=== PATIENT | female | born 1990 | race Caucasian/White ===

== ENCOUNTER 2023-04-04 22:38 | Inpatient (IN) | payer OTHER, SELFPAY ==
[2023-04-04 22:39] VITALS: BP 160/105; PULSE 111; RESP 18; TEMP 36.7; O2SAT 100; BMI 23.3
[2023-04-04 23:13] LABS: Basophils # 0.1 10^3/uL (0.0-0.1); Basophils % 0.5 %; Eosinophils % 0.2 %; Hematocrit 39.3 % (36-47); Lymphocytes # 2.4 10^3/uL (0.8-4.8); Lymphocytes % 23.8 %; Mean Corpuscular HGB Conc 32.8 g/dL (30-55); Mean Corpuscular Hemoglobin 31.3 pg (27-33); Mean Corpuscular Volume 95.4 fl (85-98); Mean Platelet Volume 8.5 fL (7.4-10.4); Monocytes # 0.7 10^3/uL (0.2-0.9); Monocytes % 6.9 %; Neutrophils # 6.95 10^3/uL (1.8-7.7); Neutrophils % 68.4 %; Nucleated Red Blood Cells % 0 %; Platelet Count 355 10^3/cmm (157-399); Red Blood Count 4.12 10^6/uL (3.85-5.65); Red Cell Distribution Width 11.8 % (12.1-15.1); White Blood Count 10.16 10^3/uL (3.29-11.43)
[2023-04-04 23:30] LABS: INR 0.96 (0.8-1.2)
[2023-04-04] MEDS: LORazepam 2 mg/mL INJ 10 mL MDV 1 MG IM ×2 (23:32→23:36)
--- NOTE | 2023-04-04 23:39 | W.ED.PSYCHS ---
HPI - Psych General: Chief Complaint: Psychiatric Symptoms Stated Complaint: AMS Time Seen by Provider: 04/04/23 22:39 Source: patient and EMS Limitations: no limitations History of Present Illness: Patient was brought up here by EMS after found wandering on the road. Patient states she recently got out of skilled nursing she supposed to be on meds I do not know what meds she states she has not been taking them she appears acutely psychotic she is very tangential thoughts keeps talking about a person named Izaiah she denies SI or HI she states she has drank some alcohol night and smoked marijuana Review of Systems Const: Denies: fever(s), chills, body aches or change in appetite ENMT: Denies: throat pain or dental pain Card: Denies: chest pain Resp: Denies: dyspnea GI: Denies: abdominal pain, nausea, vomiting or diarrhea Musc: Denies: neck pain or back pain Skin/Breast: Denies: rash Neuro: Denies: headache(s) Psych: Reports: paranoia [facility] PFSH: Social History Current gender identity: Female Female Reproductive History: Date of last menstrual period: 02/25/23 Physical Exam Const: COMMON NORMALS: patient oriented x3 and healthy appearing HENMT: COMMON NORMALS: normocephalic and atraumatic HEAD & SCALP: normocephalic and atraumatic Eye: COMMON NORMALS: Equal, round and reactive pupils present and EOMs intact bilaterally PUPIL: Yes Equal, round and reactive pupils present Neck/C-Spine: COMMON NORMALS: full ROM and supple Chest: COMMONS NORMALS: normal inspection of the chest Resp: COMMON NORMALS: normal respiratory effort Cardio: COMMON NORMALS: regular rate, regular rhythm and No murmurs present (Cardio) RATE: regular rate RHYTHM: regular rhythm Extremity: COMMON NORMALS: normal to inspection and full ROM Neuro: COMMON NORMALS: patient oriented x3, moves all extremities and no focal motor deficits Psych: COMMON NORMALS: Normal thought process present and cooperative SPEECH: Yes rapid MOOD & AFFECT: Yes euphoric THOUGHT PROCESS: Normal thought process present THOUGHT CONTENT: Yes Derealization present Skin: COMMON NORMALS: no rashes or lesions noted and no wounds GENERAL SKIN EXAM: no rashes or lesions noted Course Vital Signs: Vital signs: Vital Signs Temperature 98.1 F 04/04/23 22:39 Pulse Rate 89 04/05/23 00:11 Respiratory Rate 18 04/05/23 00:11 Blood Pressure 138/94 04/05/23 00:09 Pulse Oximetry 100 04/05/23 00:11 Oxygen Delivery Me thod Room Air 04/04/23 22:39 MDM - Psych Medical Decision Making Patient presents here with acute psychosis patient is medically clear was placed under 96-hour hold I spoke to psychiatrist and will admit at this time. Medical Records I reviewed the patient's medical records. Lab Data I reviewed the patient's lab results. 04/04/23 23:07 04/04/23 23:07 Laboratory Results WBC 10.16 10^3/uL (3.29-11.43) 04/04/23 23:07 RBC 4.12 10^6/uL (3.85-5.65) 04/04/23 23:07 Hgb 12.90 g/dL (11.27-16.99) 04/04/23 23:07 Hct 39.3 % (36-47) 04/04/23 23:07 MCV 95.4 fl (85-98) 04/04/23 23:07 MCH 31.3 pg (27-33) 04/04/23 23:07 MCHC 32.8 g/dL (30-55) 04/04/23 23:07 RDW 11.8 % (12.1-15.1) L 04/04/23 23:07 Plt Count 355 10^3/cmm (157-399) 04/04/23 23:07 MPV 8.5 fL (7.4-10.4) 04/04/23 23:07 Neut % (Auto) 68.4 % 04/04/23 23:07 Lymph % (Auto) 23.8 % 04/04/23 23:07 [place] % (Auto) 6.9 % 04/04/23 23:07 Eos % (Auto) 0.2 % 04/04/23 23:07 Baso % (Auto) 0.5 % 04/04/23 23:07 Neut # (Auto) 6.95 10^3/uL (1.8-7.7) 04/04/23 23:07 Lymph # (Auto) 2.4 10^3/uL (0.8-4.8) 04/04/23 23:07 [place] # (Auto) 0.7 10^3/uL (0.2-0.9) 04/04/23 23:07 Eos # (Auto) 0.0 10^3/uL (0.0-0.8) 04/04/23 23:07 Baso # (Auto) 0.1 10^3/uL (0.0-0.1) 04/04/23 23:07 Nucleated RBC % (auto) 0 % 04/04/23 23:07 Nucleated RBCs # 0.0 /100WBC 04/04/23 23:07 PT 13.00 SECONDS (12.1-14.9) 04/04/23 23:07 INR 0.96 (0.8-1.2) 04/04/23 23:07 Sodium 139 mmol/L (136-145) 04/04/23 23:07 Potassium 3.4 mmol/L (3.5-5.1) L 04/04/23 23:07 Chloride 104 mmol/L (98-107) 04/04/23 23:07 Carbon Dioxide 27 mmol/L (22-29) 04/04/23 23:07 Anion Gap 11.4 (5-19) 04/04/23 23:07 BUN 13 mg/dL (6-20) 04/04/23 23:07 Creatinine 0.8 mg/dL (0.5-0.9) 04/04/23 23:07 GFR Calculation 83.1 mL/min (90-130) L 04/04/23 23:07 Glucose 85 mg/dL (65-115) 04/04/23 23:07 Calculated Osmolality 287 mOsm/kg (285-295) 04/04/23 23:07 Calcium 8.9 mg/dL (8.5-10.5) 04/04/23 23:07 Total Bilirubin 0.7 mg/dL (0.15-1.2) 04/04/23 23:07 AST 20 U/L (0-32) 04/04/23 23:07 ALT 7 U/L (0-33) 04/04/23 23:07 Alkaline Phosphatase 87 U/L (35-105) 04/04/23 23:07 Total Protein 7.2 g/dL (6.6-8.7) 04/04/23 23:07 Albumin 4.7 g/dL (3.5-5.2) 04/04/23 23:07 Globulin 2.5 g/dL (1.3-4.6) 04/04/23 23:07 TSH 2.28 uIU/mL (0.27-4.20) 04/04/23 23:07 Salicylates < 0.3 mg/dL (3-10) L 04/04/23 23:07 Acetaminophen < 5.0 ug/mL (10-30) L 04/04/23 23:07 Ethyl Alcohol < 10 mg/dL (0-10) 04/04/23 23:07 No radiology studies performed this visit Discharge Plan Discharge Patient Disposition: Admitted As Inpatient Admit Provider: Low Corado Clinical Impression: Acute psychosis Condition: Stable Coding Level of Care Code ED Mammalogist for Codi Eddy
--- NOTE | 2023-04-04 23:42 | PC.NURSE ---
Patient dressed out and placed in paper psych scrubs. Patient placed in cleared room with belongings removed, PSA present at bedside.
[2023-04-04 23:45] LABS: Alanine Aminotransferase 7 U/L (0-33); Albumin Level 4.7 g/dL (3.5-5.2); Alkaline Phosphatase 87 U/L (35-105); Anion Gap 11.4 (5-19); Aspartate Amino Transferase 20 U/L (0-32); Blood Urea Nitrogen 13 mg/dL (6-20); Calcium 8.9 mg/dL (8.5-10.5); Carbon Dioxide 27 mmol/L (22-29); Chloride 104 mmol/L (98-107); Creatinine Clr Calc Pharmacy 88.2772; Globulin 2.5 g/dL (1.3-4.6); Glomerular Filtration Rate 83.1 mL/min (90-130); Glucose 85 mg/dL (65-115); Osmolality Calculated 287 mOsm/kg (285-295); Potassium 3.4 mmol/L (3.5-5.1); Sodium 139 mmol/L (136-145); Thyroid Stimulating Hormone 2.28 uIU/mL (0.27-4.20); Total Bilirubin 0.7 mg/dL (0.15-1.2); Total Protein 7.2 g/dL (6.6-8.7)
--- NOTE | 2023-04-04 23:45 | PC.NURSE ---
Nurse branch sales manager SHOBHA Barton wasted ketamine with this nurse at the [facility] after med orders changed.
[2023-04-04 23:46] LABS: Acetaminophen < 5.0 ug/mL (10-30); Alcohol Level < 10 mg/dL (0-10); Salicylate < 0.3 mg/dL (3-10)
[2023-04-05 00:09] VITALS: BP 138/94
[2023-04-05 00:11] VITALS: PULSE 89; RESP 18; O2SAT 100
[2023-04-05 00:19] VITALS: BP 132/88; PULSE 104; RESP 20; O2SAT 97
[2023-04-05] MEDS: diphenhydrAMINE 50 mg Capsule PO (01:17)
[2023-04-05 01:20] LABS: HCG Qualitative Urine. Negative (Negative)
[2023-04-05 01:30] LABS: Bilirubin Urine Neg (Negative); Blood Urine 3+ (Negative); Glucose Urine UA Norm (Normal); Ketones Urine Negative (Negative); Leukocyte Esterase Urine Trace (Negative); Nitrate Urine Negative (Negative); Protein Urine Neg (Negative); Specific Gravity, Urine 1.015 (1.005-1.030); Urine Appearance SL Hazy (CLEAR); Urine Color Light yellow (Yellow); Urobilinogen Urine Neg (Negative); pH Urine 8 (5-7)
[2023-04-05 01:31] LABS: Add Urine Culture? No; Add Urine Microscopic? YES; Amorphous Sediment Urine 2+ /hpf; Bacteria Urine 2+ /hpf; RBC Urine 0-4 /hpf (0-2); Sulfosalicylic Acid Urine Negative (Negative); WBC Urine 0-4 /hpf (0-5)
[2023-04-05 01:32] LABS: Amphetamines Screen Urine Negative (Negative); Barbiturates Screen Urine Negative (Negative); Benzodiazepines Screen Urine Negative (Negative); Cocaine Screen Urine Negative (Negative); Opiate Screen Urine Negative (Negative); PCP Screen Urine Negative (Negative); THC Screen Urine Negative (Negative)
--- NOTE | 2023-04-05 03:19 | PC.NURSE ---
Patient Behavior At appx [phone] patient was pushing on the door and making threats to staff that we better let her out or she will tear this place up. Security and warehouse man present and verbal deescalation was successful.
[2023-04-05 06:00] VITALS: RESP 18
--- NOTE | 2023-04-05 06:40 | PC.NURSE ---
Due to patients manic behavior, only RR were documented. Per CN
[2023-04-05] MEDS: nicotine 2 mg Gum BUCCAL ×4 (11:30→17:48)
--- NOTE | 2023-04-05 13:45 | W.PM.NPUH&PS ---
Providers/Chief Complaint Admitting Physician: Low Corado MD Chief Complaint: AMS HPI NPU History of Present Illness Jason Tanner is a 32 year old female who presented to the emergency department after she was found by emergency medical services to be wandering on the road. The patient was unable to provide any history regarding how she had come to be there. The patient's urine toxicology screen was negative for alcohol and all illicit drugs in the standard panel. She had admitted to the use of marijuana and alcohol in the emergency department despite not having any evidence of alcohol or marijuana in her system. The patient was admitted to the neuropsychiatric unit for further evaluation and treatment. The patient reports that she has been fine here. She states that she has been residing with her mother and [facility]. She reports that she has 2 children ages 13 and 11 that live with her father. When the patient was asked as to where she was at this time she stated that she was in [facility]. She was an extremely poor historian and was unable to provide any significant details regarding her past history. She had acknowledged that something had happened like this before where she had been confused and was unable to remember who she was or where she was in the past. Inpatient psychiatric history: She had reported 1 previous inpatient hospitalization psychiatrically in [place]. Outpatient psychiatric history: Apparently 1 previous evaluation in 2019 at the [facility]. Allergies: amoxicillin Medical history: None reported Surgical history: 2 C-sections Current medications: None Drug and alcohol history:none reported although reports of previous DUI in [place] 2023 Legal Hx: hx of [facility] for DUI in 2022 Family psychiatric hx: none reported Social Hx: Per previous records, she lives in [facility] with her mother. Her 2 children are ages 13 and 11 and live with the father. She had had limited contact with her children but denies having her rights terminated. She reported a chaotic childhood as she had lived between several family members. She had denied any history of sexual physical or emotional abuse during her childhood. She had allegedly graduated from high school and had previously worked jobs although she was unable to describe any current work at this time. Meds NPU Home Medications Medication Instructions Recorded Confirmed Last Taken Type fluoxetine 20 mg capsule (Prozac) 20 mg PO DAILY 01/21/20 01/21/20 Unknown History hydroxyzine pamoate 25 mg capsule 25 mg PO BID PRN 01/21/20 01/21/20 Unknown History (Vistaril) Allergies Allergy/AdvReac Type Severity Reaction Status Date / Time No Known Allergies Allergy Verified 04/04/23 22:51 PFSH NPU PFSH: Social History Current gender identity: Female Mental Status Exam MSE Comments: Patient appeared very confused. She was alert and not oriented to place or time today. Her gait appeared within normal limits. She is a thin white female who appeared her stated age. She did at times appear to be hyperkinetic. Her speech was productive with increased rate and normal volume. Her mood was described as okay. Her affect was bizarre. Her thought process was nonlinear and disorganized with tangentiality appreciated. Her thought content showed no evidence of homicidal or suicidal ideation. She was able to follow basic one-step commands only. She was unable to complete simple arithmetic. Her registration of 3 out of 3 words was impaired. She remembered 0 words out of 3 words after 5 minutes. Her attention span appeared impaired. She did appear at times to be responding to internal stimuli. Her insight is impaired. Her judgment is poor. Her impulse control appeared limited. Vitals/I&O/Wt Last Vital Signs Temp 98.1 F 04/04/23 22:39 Pulse 104 H 04/05/23 00:19 Resp 18 04/05/23 06:00 BP 132/88 04/05/23 00:19 Pulse Ox 97 04/05/23 00:19 O2 Del Method Room Air 04/05/23 00:19 Weight last 48 hrs Weight 59.874 kg Data NPU 04/04/23 23:07 04/04/23 23:07 A&P Assessment and plan (1) Acute psychosis: (2) Dissociative episodes: (3) Dissociative fugue: Plan 32-year-old female who appears psychotic this time significant confusion admitted after being found on the road with a reported history of dissociation. 1. ?Encourage individual, group and milieu therapy. 2. Recommend sober living treatment at the highest level of care to which the patient is willing to commit. 3. Continue q-15 minute checks for safety 4. Will attempt to gather collateral information from family. 5. Consider antipsychotic, continue involuntary stay at this time. Involuntary Hold Information 96 Hour Hold: 96 Hour Involuntary Admission: Yes 96 Hour Hold Ending Date: 04/10/23 96 Hour Hold Ending Time: 23:19 Attestations NPU Medical Necessity Statement*: Inpatient hospitalization is medically necessary and deemed to be the clinically appropriate intervention at this time.? Medications will be initiated and adjusted as clinically indicated.? The patient will be hospitalized for at least 2 midnights.? The patient?s likely length of stay is 5-7 days.? 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
[2023-04-05 14:00] VITALS: BP 122/82; PULSE 88; RESP 20; TEMP 36.6; O2SAT 98
--- NOTE | 2023-04-05 15:41 | PC.NURSE ---
Patient yelling on the phone to her brother. Patient yelling that she keeps getting into predicaments for nothing. Patient states that obviously someone is gang stocking her, keeping track of her, on her phone.
[2023-04-05] MEDS: OLANZapine 5 mg ODT PO (16:49)
[2023-04-05 21:22] VITALS: RESP 16
[2023-04-06 06:00] VITALS: RESP 15
--- NOTE | 2023-04-06 06:37 | PC.NURSE ---
Due to patients manic behavior per CN only RR documented and vitals were not obtained.
[2023-04-06] MEDS: nicotine 2 mg Gum BUCCAL (09:46)
[2023-04-06] MEDS: OLANZapine 5 mg ODT PO (12:11)
[2023-04-06 14:00] VITALS: BP 106/70; PULSE 66; RESP 16; TEMP 36.6; O2SAT 99
--- NOTE | 2023-04-06 16:18 | P.NPUPN_ITS ---
Subjective NPU 2 Subjective: Patient presented today reporting that she is doing okay. She seemed to feel like she was already taking an antipsychotic so she was not wanting to start a new 1. We agreed she could take the as needed medication and that we would revisit this tomorrow and look at a long-term scheduled dose medication to assist with her confusion. She denied any other issues at this time. Mental Status Exam 2 MSE Comments: This is a well-nourished well-developed white female in hospital scrubs with adequate grooming but limited eye contact. No abnormal movements except for psychomotor retardation that she had been sleep. Mostly cooperative with exam and mild distress. Speech was decreased rate and volume. Mood described as tired, affect congruent. Thought process was linear. Thought content: Patient denied suicidal or homicidal ideation, there were no delusions reported but bizarre or paranoid delusions noted, she did not report auditory or visual hallucinations. Attention and concentration were limited and memory was unreliable but none were formally tested. She is alert and oriented times person. Insight, judgment and impulse control are limited versus impaired. Vitals/I&O/Wt Last Vital Signs Temp 97.9 F 04/06/23 14:00 Pulse 66 04/06/23 14:00 Resp 16 04/06/23 14:00 BP 106/70 04/06/23 14:00 Pulse Ox 99 04/06/23 14:00 O2 Del Method Room Air 04/06/23 14:00 Weight last 48 hrs Weight 59.874 kg Data NPU 04/04/23 23:07 04/04/23 23:07 A&P Assessment and plan (1) Acute psychosis: (2) Dissociative episodes: (3) Dissociative fugue: Plan 32-year-old female who appears psychotic this time significant confusion admitted after being found on the road with a reported history of dissociation. 1. ?Encourage individual, group and milieu therapy. 2. Recommend sober living treatment at the highest level of care to which the patient is willing to commit. 3. Continue q-15 minute checks for safety 4. Will attempt to gather collateral information from family. 5. Consider antipsychotic, continue involuntary stay at this time. Involuntary Hold Information 2 96 Hour Hold: 96 Hour Involuntary Admission: Yes 96 Hour Hold Ending Date: 04/10/23 96 Hour Hold Ending Time: 23:19 Attestations NPU 2 Medical Necessity Statement*: Inpatient hospitalization is medically necessary and the clinically appropriate intervention at this time.? Medications will be initiated and adjusted as clinically indicated.? The patient?s likely length of stay is 4-6 days.? 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
[2023-04-06] MEDS: trazodone 50 mg Tablet PO (20:45)
[2023-04-06] MEDS: acetaminophen 325 mg Tablet 650 MG PO (20:45)
[2023-04-06] MEDS: hyDROXYzine 25 mg Capsule 50 MG PO (20:45)
[2023-04-06 21:16] VITALS: BP 110/65; PULSE 92; RESP 16; TEMP 36.8; O2SAT 97
--- NOTE | 2023-04-06 22:42 | PC.NURSE ---
PT RESTING IN BED. DENIES SI/HI AND AVH AT THIS TIME. RATES ANXIETY AND DEPRESSION 0/10. RATES PAIN IN SHOULDERS 6/10 TYELNOL GIVEN ORDERED. PT THEN CAME NURSES STATION REQUESTING ANXIETY MEDS AND SLEEP MEDICATIONS. TRAZODONE 50 MG WAS GIVEN ORDERED FOR INSOMNIA. VISTARIL 50 MG WAS GIVEN FOR INCREASED ANXIETY ORDERED. ALL QUESTIONS WERE ANSWERED AND SUPPORT WAS VOICED.
[2023-04-07 06:00] VITALS: BP 107/62; PULSE 80; RESP 16; TEMP 36.6; O2SAT 96
--- NOTE | 2023-04-07 06:35 | PC.NURSE ---
PT WAS GIVEN PRN MEDICATION EARLIER THIS SHIFT. PT WAS GIVEN TYLENOL FOR PAIN AND HAS NO FURTHER COMPLAINTS. PT WAS GIVEN TRAZODONE FOR INSOMNIA AND HAS SLEPT APPROXIMATELY 10-11 HOURS THIS SHIFT. PT WAS ALSO GIVEN VISTARIL FOR INCREASED ANXIETY. ALL MEDICATIONS DEEMED EFFECTIVE AT THIS TIME. PT HAS HAD NO OTHER COMPLAINTS OF ANXIETY AND CONTINUES TO REST WITH NO DISTRESS NOTED.
[2023-04-07] MEDS: nicotine 2 mg Gum BUCCAL ×4 (08:27→17:21)
[2023-04-07 14:00] VITALS: BP 108/73; PULSE 115; RESP 16; TEMP 36.9; O2SAT 97
[2023-04-07] MEDS: hyDROXYzine 25 mg Capsule 50 MG PO (14:28)
--- NOTE | 2023-04-07 15:55 | P.NPUPN_ITS ---
Subjective NPU 2 Subjective: Patient presented today reporting that she is doing okay. She spent most of the time making bizarre statements about why she was in the dumpster and at 1 point folded/sound a line from a song and then was tangential trying to relate the worst to the song to herself in some kind of way. She was occasionally tearful but it was unclear about what was making her emotional. She had complaints about possible burning or pain in her vaginal area and we discussed the risks, benefits and alternatives of getting an STD panel and she understood and agreed to proceed as is documented in this note. Additionally we discussed the risks, benefits and alternatives of Abilify and she understood and agreed to proceed as is documented. Mental Status Exam 2 MSE Comments: This is a well-nourished well-developed white female in hospital scrubs with adequate grooming and eye contact. No abnormal movements except for mild psychomotor retardation . More cooperative with exam in mild distress. Speech was decreased rate and volume. Mood described as okay, affect congruent. Thought process was linear and at times disorganized. Thought content: Patient denied suicidal or homicidal ideation, there were no delusions reported but bizarre or paranoid delusions noted, she did not report auditory or visual hallucinations. She reported very confused and bizarre thought patterns. Attention and concentration were limited and memory was unreliable but none were formally tested. She is alert and oriented times person. Insight, judgment and impulse control are limited versus impaired. Vitals/I&O/Wt Last Vital Signs Temp 98.5 F 04/07/23 14:00 Pulse 115 H 04/07/23 14:00 Resp 16 04/07/23 14:00 BP 108/73 04/07/23 14:00 Pulse Ox 97 04/07/23 14:00 O2 Del Method Room Air 04/07/23 06:00 Data NPU 04/04/23 23:07 04/04/23 23:07 A&P Assessment and plan (1) Acute psychosis: (2) Dissociative episodes: (3) Dissociative fugue: Plan 32-year-old female who appears psychotic this time significant confusion admitted after being found on the road with a reported history of dissociation. 1. ?Encourage individual, group and milieu therapy. 2. Recommend sober living treatment at the highest level of care to which the patient is willing to commit. 3. Continue q-15 minute checks for safety 4. Will attempt to gather collateral information from family. 5. Start Abilify 10 mg p.o. daily for psychosis. 6. Obtain STD panel due to reported symptoms. Involuntary Hold Information 2 96 Hour Hold: 96 Hour Involuntary Admission: Yes 96 Hour Hold Ending Date: 04/10/23 96 Hour Hold Ending Time: 23:19 Attestations NPU 2 Medical Necessity Statement*: Inpatient hospitalization is medically necessary and the clinically appropriate intervention at this time.? Medications will be initiated and adjusted as clinically indicated.? The patient?s likely length of stay is 4-6 days.? 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
--- NOTE | 2023-04-07 15:58 | PC.NURSE ---
Patient complains of vaginal discharge odor and currently has a sore on her labia. Dr. Corado informed and no new orders given at this time.
[2023-04-07] MEDS: ARIPiprazole 10 mg Tablet PO (17:16)
[2023-04-07] MEDS: ibuprofen 600 mg Tablet PO (20:26)
[2023-04-07] MEDS: trazodone 50 mg Tablet PO (20:27)
[2023-04-07 20:45] VITALS: BP 126/80; PULSE 83; RESP 16; TEMP 36.6; O2SAT 97
[2023-04-08 06:00] VITALS: BP 107/70; PULSE 95; RESP 17; TEMP 36.5; O2SAT 96
[2023-04-08] MEDS: ARIPiprazole 10 mg Tablet PO (08:04)
[2023-04-08] MEDS: nicotine 2 mg Gum BUCCAL ×2 (08:23→14:06)
[2023-04-08 14:00] VITALS: BP 123/86; PULSE 82; RESP 13; TEMP 36.3; O2SAT 98
[2023-04-08] MEDS: hyDROXYzine 25 mg Capsule 50 MG PO (14:06)
--- NOTE | 2023-04-08 17:53 | W.PM.NPUPNS ---
Subjective NPU Subjective: Patient presented today reporting that she is feeling a little better. Interestingly after being very clear that she was to be called Dipika she was almost offended by the name and was clear that her name has always been Denominational. She reports that what ever was making her say that was silly and that she does not know why she was doing that. We discussed believing that her possibly resolving thought disorder is likely related to the Abilify 10 mg that was started. She denied any side effects from that medication. Mental Status Exam MSE Comments: This is a well-nourished well-developed white female in hospital scrubs with adequate grooming and eye contact. No abnormal movements except for mild psychomotor retardation . More cooperative with exam in mild distress. Speech was decreased rate and volume. Mood described as okay, affect congruent. Thought process was linear and at times disorganized. Thought content: Patient denied suicidal or homicidal ideation, there were no delusions reported but bizarre or paranoid delusions noted, she did not report auditory or visual hallucinations. She reported very confused and bizarre thought patterns. Attention and concentration were limited and memory was unreliable but none were formally tested. She is alert and oriented times person. Insight, judgment and impulse control are limited versus impaired. Vitals/I&O/Wt Last Vital Signs Temp 97.3 F L 04/08/23 14:00 Pulse 82 04/08/23 14:00 Resp 13 04/08/23 14:00 BP 123/86 04/08/23 14:00 Pulse Ox 98 04/08/23 14:00 O2 Del Method Room Air 04/08/23 06:00 Data NPU 04/04/23 23:07 04/04/23 23:07 A&P Assessment and plan (1) Acute psychosis: (2) Dissociative episodes: (3) Dissociative fugue: Plan 32-year-old female who appears psychotic this time significant confusion admitted after being found on the road with a reported history of dissociation. 1. ?Encourage individual, group and milieu therapy. 2. Recommend sober living treatment at the highest level of care to which the patient is willing to commit. 3. Continue q-15 minute checks for safety 4. Will attempt to gather collateral information from family. 5. Start Abilify 10 mg p.o. daily for psychosis. 6. Awaiting results of STD panel. Involuntary Hold Information 96 Hour Hold: 96 Hour Involuntary Admission: Yes 96 Hour Hold Ending Date: 04/10/23 96 Hour Hold Ending Time: 23:19 Attestations NPU Medical Necessity Statement*: Inpatient hospitalization is medically necessary and the clinically appropriate intervention at this time.? Medications will be initiated and adjusted as clinically indicated.? The patient?s likely length of stay is 4-6 days.? 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
[2023-04-08 19:59] VITALS: BP 136/62; PULSE 98; RESP 15; TEMP 36.7; O2SAT 98
[2023-04-09 06:00] VITALS: BP 114/80; PULSE 79; RESP 14; TEMP 36.9; O2SAT 97
[2023-04-09] MEDS: nicotine 2 mg Gum BUCCAL ×4 (06:15→20:20)
[2023-04-09] MEDS: ARIPiprazole 10 mg Tablet PO (08:00)
[2023-04-09] MEDS: nicotine 4 mg lozenge MUCOUS MEM ×3 (08:54→16:57)
--- NOTE | 2023-04-09 11:12 | P.NPUPN_ITS ---
Subjective NPU 2 Subjective: Patient presented today reporting that she is feeling better and hoping to discharge soon. She has discontinued her considering herself as Dipika, but still has delusional reference that it may have represented some person she had previously been. She continues to downplay the significance of her addiction which likely led to her psychosis which is now resolving. We discussed the role that Abilify likely has played in helping create some abatement in her psychosis. She reported some openness to follow-up but continues to seem ambivalent about sober living and active treatment. She denied any side effects to the medication. Mental Status Exam 2 MSE Comments: This is a well-nourished well-developed white female in hospital scrubs with adequate grooming and eye contact. No abnormal movements except for mild psychomotor retardation . More cooperative with exam in mild distress. Speech was more normal rate and volume. Mood described as okay, affect congruent. Thought process was linear and more organized. Thought content: Patient denied suicidal or homicidal ideation, there were no delusions reported but bizarre or paranoid delusions noted, she did not report auditory or visual hallucinations. She reported very confused and bizarre thought patterns. Attention and concentration were limited and memory was unreliable but none were formally tested. She is alert and oriented times person. Insight, judgment and impulse control are limited versus impaired. Vitals/I&O/Wt Last Vital Signs Temp 98.4 F 04/09/23 06:00 Pulse 79 04/09/23 06:00 Resp 14 04/09/23 06:00 BP 114/80 04/09/23 06:00 Pulse Ox 97 04/09/23 06:00 O2 Del Method Room Air 04/09/23 06:00 Weight last 48 hrs Weight 58.151 kg Data NPU 04/04/23 23:07 04/04/23 23:07 A&P Assessment and plan (1) Acute psychosis: (2) Dissociative episodes: (3) Dissociative fugue: Plan 32-year-old female who appears psychotic this time significant confusion admitted after being found on the road with a reported history of dissociation. 1. ?Encourage individual, group and milieu therapy. 2. Recommend sober living treatment at the highest level of care to which the patient is willing to commit. 3. Continue q-15 minute checks for safety 4. Will attempt to gather collateral information from family. 5. Started Abilify 10 mg p.o. daily for psychosis. 6. Awaiting results of STD panel. Involuntary Hold Information 2 96 Hour Hold: 96 Hour Involuntary Admission: Yes 96 Hour Hold Ending Date: 04/10/23 96 Hour Hold Ending Time: 23:19 Attestations NPU 2 Medical Necessity Statement*: Inpatient hospitalization is medically necessary and the clinically appropriate intervention at this time.? Medications will be initiated and adjusted as clinically indicated.? The patient?s likely length of stay is 4-6 days.? 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
[2023-04-09 14:00] VITALS: BP 129/90; PULSE 106; RESP 17; TEMP 36.6; O2SAT 97
[2023-04-09] MEDS: hyDROXYzine 25 mg Capsule 50 MG PO ×2 (14:13→20:20)
[2023-04-09] MEDS: acetaminophen 325 mg Tablet 650 MG PO (16:26)
[2023-04-09] MEDS: trazodone 50 mg Tablet PO (20:19)
[2023-04-09 20:33] VITALS: BP 127/87; PULSE 107; RESP 18; TEMP 36.3; O2SAT 97
[2023-04-10 06:00] VITALS: BP 114/65; PULSE 91; RESP 16; TEMP 36.4; O2SAT 96
[2023-04-10] MEDS: nicotine 4 mg lozenge MUCOUS MEM ×4 (06:28→16:35)
--- NOTE | 2023-04-10 06:37 | PC.NURSE ---
PT RECEIVED PRN MEDICATION FOR SLEEP EARLIER IN THE SHIFT. MEDICATION DEEMED EFFECTIVE. PT WAS ABLE REST AND SLEPT APPROXIMATELY 9 HOURS THIS SHIFT.
[2023-04-10] MEDS: nicotine 2 mg Gum BUCCAL (08:03)
[2023-04-10] MEDS: ARIPiprazole 10 mg Tablet PO (08:23)
[2023-04-10] MEDS: hyDROXYzine 25 mg Capsule 50 MG PO ×3 (08:23→20:32)
[2023-04-10 12:24] LABS: HSV 1 IGG Type Specific AB 2.34 index; HSV 2 IGG Type Specific AB 5.38 index
--- NOTE | 2023-04-10 12:55 | P.NPUPN_ITS ---
Subjective NPU 2 Subjective: Patient presented today reporting that she is doing okay. She spent a lot of time in her room today and reports that she is just been a little tired. We discussed making a final decision about extending her hold based on how she is doing as well as what sober living resources we have in place as well as where she will discharge to. She denied any side effects of the medication. Mental Status Exam 2 MSE Comments: This is a well-nourished well-developed white female in hospital scrubs with adequate grooming and eye contact. No abnormal movements except for mild psychomotor retardation . More cooperative with exam in mild distress. Speech was more normal rate and volume. Mood described as okay, affect congruent. Thought process was linear and more organized. Thought content: Patient denied suicidal or homicidal ideation, there were no delusions reported some residual delusion allergy noted with some possible improvement., she did not report auditory or visual hallucinations. She reported very confused and bizarre thought patterns. Attention and concentration were limited and memory was unreliable but none were formally tested. She is alert and oriented times person. Insight, judgment and impulse control are limited versus impaired. Vitals/I&O/Wt Last Vital Signs Temp 97.5 F L 04/10/23 06:00 Pulse 91 04/10/23 06:00 Resp 16 04/10/23 06:00 BP 114/65 04/10/23 06:00 Pulse Ox 96 04/10/23 06:00 O2 Del Method Room Air 04/09/23 20:33 Weight last 48 hrs Weight 58.151 kg Data NPU 04/04/23 23:07 04/04/23 23:07 A&P Assessment and plan (1) Acute psychosis: (2) Dissociative episodes: (3) Dissociative fugue: Plan 32-year-old female who appears psychotic this time significant confusion admitted after being found on the road with a reported history of dissociation. 1. ?Encourage individual, group and milieu therapy. 2. Recommend sober living treatment at the highest level of care to which the patient is willing to commit. 3. Continue q-15 minute checks for safety 4. Will attempt to gather collateral information from family. 5. Started Abilify 10 mg p.o. daily for psychosis. 6. Awaiting results of STD panel. Current signs may be significant for herpes. Consider OB consult versus hospitalist consult for consideration of antiviral for active disease. Involuntary Hold Information 2 96 Hour Hold: 96 Hour Involuntary Admission: Yes 96 Hour Hold Ending Date: 04/10/23 96 Hour Hold Ending Time: 23:19 Attestations NPU 2 Medical Necessity Statement*: Inpatient hospitalization is medically necessary and the clinically appropriate intervention at this time.? Medications will be initiated and adjusted as clinically indicated.? The patient?s likely length of stay is 3-5 days.? This may be longer if we decide to file a 21-day extension tomorrow. 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
[2023-04-10 14:00] VITALS: BP 114/76; PULSE 100; RESP 17; TEMP 36.3; O2SAT 96
[2023-04-10 14:43] LABS: Add Urine Microscopic? YES; Bilirubin Urine Neg (Negative); Blood Urine Neg (Negative); Glucose Urine UA Norm (Normal); Ketones Urine Negative (Negative); Leukocyte Esterase Urine Negative (Negative); Nitrate Urine Negative (Negative); Protein Urine Neg (Negative); RBC Urine RARE /hpf (0-2); Squamous Epithelial Cell Urine 0-4 /hpf (0-5); Sulfosalicylic Acid Urine Negative (Negative); Urine Appearance SL Hazy (CLEAR); Urine Color Yellow (Yellow); Urobilinogen Urine Neg (Negative); WBC Urine RARE /hpf (0-5); pH Urine 8 (5-7)
[2023-04-10 14:44] LABS: Add Urine Culture? No; Amorphous Sediment Urine 1+ /hpf; Bacteria Urine 1+ /hpf; Mucus Urine TRACE /hpf
[2023-04-10 14:44] LABS: HIV 1 & 2 Antibody Non-Reactive (Non-Reactiv); HIV 1 & 2 Antigen Non-Reactive (Non-Reactiv)
[2023-04-10 14:51] LABS: Hepatitis A Antibody IgM Non-Reactive (Nonreactive); Hepatitis B Core AB, Total Non-Reactive (Nonreactive); Hepatitis B Surface AB 10.4 (11.5-1000); Hepatitis B Surface Antigen Non-Reactive (Nonreactive); Hepatitis C Virus Antibody Non-Reactive (Nonreactive)
[2023-04-10 17:14] LABS: Chlamydia Trachomatis RNA TMA NOT DETECTED (NOT DETECTED); Neisseria Gonorrhoeae RNA, TMA NOT DETECTED (NOT DETECTED)
[2023-04-10 20:05] VITALS: BP 104/58; PULSE 78; RESP 16; TEMP 36.8; O2SAT 97
[2023-04-11 06:00] VITALS: BP 112/76; PULSE 95; RESP 16; TEMP 36.8; O2SAT 97
[2023-04-11] MEDS: hyDROXYzine 25 mg Capsule 50 MG PO ×3 (07:23→19:18)
[2023-04-11] MEDS: ARIPiprazole 10 mg Tablet PO (07:23)
[2023-04-11] MEDS: nicotine 2 mg Gum BUCCAL (07:23)
[2023-04-11] MEDS: nicotine 4 mg lozenge MUCOUS MEM ×5 (08:52→18:14)
[2023-04-11 14:00] VITALS: BP 111/69; PULSE 111; RESP 20; TEMP 36.6; O2SAT 97
--- NOTE | 2023-04-11 15:40 | P.NPUPN_ITS ---
Subjective NPU 2 Subjective: Patient presented today reporting that she is feeling better. She continues to make significant improvement per staff and direct observation. We discussed her situation with drug court and her having a willingness to continue the medication since she is feeling that she is doing much better. We discussed her signing in and not going forward with the 21-day-old hearing. She was going to call her family to pick her up tomorrow. She denied any side effects of the medication and we discussed her considering the long-acting injectable Abilify Maintena or Abilify Asimtufii. Mental Status Exam 2 MSE Comments: This is a well-nourished well-developed white female in hospital scrubs with adequate grooming and eye contact. No abnormal movements. More cooperative with exam in no acute distress. Speech was more normal rate and volume. Mood described as much better, affect congruent. Thought process was linear and more organized. Thought content: Patient denied suicidal or homicidal ideation, there were no delusions reported or noted, she did not report auditory or visual hallucinations. Attention and concentration were limited and memory was unreliable but none were formally tested. She is alert and oriented times 3. Insight, judgment and impulse control are limited and improving. Vitals/I&O/Wt Last Vital Signs Temp 97.9 F 04/11/23 14:00 Pulse 111 H 04/11/23 14:00 Resp 20 H 04/11/23 14:00 BP 111/69 04/11/23 14:00 Pulse Ox 97 04/11/23 14:00 O2 Del Method Room Air 04/09/23 20:33 Data NPU 04/04/23 23:07 04/04/23 23:07 A&P Assessment and plan (1) Acute psychosis: (2) Dissociative episodes: (3) Dissociative fugue: Plan 32-year-old female who appears psychotic this time significant confusion admitted after being found on the road with a reported history of dissociation. 1. ?Encourage individual, group and milieu therapy. 2. Recommend sober living treatment at the highest level of care to which the patient is willing to commit. 3. Continue q-15 minute checks for safety 4. Will attempt to gather collateral information from family. 5. Started Abilify 10 mg p.o. daily for psychosis. 6. Awaiting results of STD panel. Current signs may be significant for herpes. Consider OB consult versus hospitalist consult for consideration of antiviral for active disease. 7. We will have patient's sign in discontinue the 21-day hold hearing tomorrow and discharge. Involuntary Hold Information 2 96 Hour Hold: 96 Hour Involuntary Admission: Yes 96 Hour Hold Ending Date: 04/10/23 96 Hour Hold Ending Time: 23:19 Attestations NPU 2 Medical Necessity Statement*: Inpatient hospitalization is medically necessary and the clinically appropriate intervention at this time.? Medications will be initiated and adjusted as clinically indicated.? The patient?s likely length of stay is 1-3 days.? 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
--- NOTE | 2023-04-11 15:54 | PC.NURSE ---
iNVEGA 234MG/1.5Ml ADMINISTERED TO PATIENT IN RIGHT DELTOID MUSCLE. NO ADVERSE REACTIONS. TOLERATED WELL. LOT: [id number] EXP: 08/2024
[2023-04-11] MEDS: trazodone 50 mg Tablet PO (19:18)
[2023-04-11 20:41] VITALS: BP 117/71; PULSE 94; RESP 16; TEMP 36.5; O2SAT 99
[2023-04-12 06:00] VITALS: BP 105/73; PULSE 101; RESP 16; TEMP 36.6; O2SAT 97
[2023-04-12] MEDS: nicotine 4 mg lozenge MUCOUS MEM ×2 (06:26→08:13)
--- NOTE | 2023-04-12 06:41 | P.NPUDS_ITS ---
Diagnoses at Discharge Discharge Diagnosis (1) Acute psychosis: Status: Acute (2) Dissociative episodes: Status: Acute (3) Dissociative fugue: Status: Acute Reason for Visit Reason for Visit: AMS Brief History: History of Present Illness Jason Tanner is a 32 year old female who [facility] after she was found by emergency medical services to be wandering on the road. The patient was unable to provide any history regarding how she had come to be there. The patient's urine toxicology screen was negative for alcohol and all illicit drugs in the standard panel. She had admitted to the use of marijuana and alcohol in the emergency department despite not having any evidence of alcohol or marijuana in her system. The patient was admitted to the neuropsychiatric unit for further evaluation and treatment. The patient reports that she has been fine here. She states that she has been residing with her mother and [facility]. She reports that she has 2 children ages 13 and 11 that live with her father. When the patient was asked as to where she was at this time she stated that she was in [facility]. She was an extremely poor historian and was unable to provide any significant details regarding her past history. She had acknowledged that something had happened like this before where she had been confused and was unable to remember who she was or where she was in the past. Inpatient psychiatric history: She had reported 1 previous inpatient hospitalization psychiatrically in [place]. Outpatient psychiatric history: Apparently 1 previous evaluation in 2019 at the [facility]. Allergies: amoxicillin Medical history: None reported Surgical history: 2 C-sections Current medications: None Drug and alcohol history:none reported although reports of previous DUI in [place] 2022 Legal Hx: hx of retirement for DUI in 2022 Family psychiatric hx: none reported Social Hx: Per previous records, she lives in [facility] with her mother. Her 2 children are ages 13 and 11 and live with the father. She had had limited contact with her children but denies having her rights terminated. She reported a chaotic childhood as she had lived between several family members. She had denied any history of sexual physical or emotional abuse during her childhood. She had allegedly graduated from high school and had previously worked jobs although she was unable to describe any current work at this time. Hospital Course Hospital Course Patient slowly acclimated to the individual, group and milieu therapies provided. She presented with significant psychosis with no identifiable active addiction. It took time for her to get to a place where she would agree to take medication and a 21-day hold was filed but never executed. Eventually she became open to taking medication and was started on Abilify 10 mg p.o. daily with a very robust response. She worked with the social work team for appropriate follow-up and aftercare. During hospitalization she had significant improvement and was able to contract for safety outside of the hospital prior to discharge. During the hospitalization, she had routine laboratory studies which were within normal limits except for a few outliers. Additionally she had general medical evaluation which was also within normal limits and revealed no new acute processes. Discharge Summary At the time of discharge, she denied any lethality and psychosis was resolving. Mood and anxiety were well managed and he endorsed a plan to avoid all drugs of abuse, and follow-up with the recommended post hospital services. She was evaluated and deemed to be absent credible lethality and had received the maximum benefit from an inpatient hospitalization, so was discharged. Involuntary Hold Information 96 Hour Hold: 96 Hour Involuntary Admission: Yes 96 Hour Hold Ending Date: 04/10/23 96 Hour Hold Ending Time: 23:19 Mental Status Exam MSE Comments: This is a well-nourished well-developed white female in hospital scrubs with adequate grooming and eye contact. No abnormal movements. More cooperative with exam in no acute distress. Speech was more normal rate and volume. Mood described as much better, affect congruent. Thought process was linear and more organized. Thought content: Patient denied suicidal or homicidal ideation, there were no delusions reported or noted, she did not report auditory or visual hallucinations. Attention and concentration were limited and memory was more reliable but none were formally tested. She is alert and oriented times 3. Insight, judgment and impulse control are limited but improving. Discharge Data Studies Completed and Pending: Laboratory Results WBC 10.16 10^3/uL (3. 29-11.43) 04/04/23 23:07 RBC 4.12 10^6/uL (3.8 5-5.65) 04/04/23 23:07 Hgb 12.90 g/dL (11.27 -16.99) 04/04/23 23:07 Hct 39.3 % (36-47) 04/04/23 23:07 MCV 95.4 fl (85-98) 04/04/23 23:07 MCH 31.3 pg (27-33) 04/04/23 23:07 MCHC 32.8 g/dL (30-55) 04/04/23 23:07 RDW 11.8 % (12.1-15.1 ) L 04/04/23 23:07 Plt Count 355 10^3/cmm (157 -399) 04/04/23 23:07 MPV 8.5 fL (7.4-10.4) 04/04/23 23:07 Neut % (Auto) 68.4 % 04/04/23 23:07 Lymph % (Auto) 23.8 % 04/04/23 23:07 Hood % (Auto) 6.9 % 04/04/23 23:07 Eos % (Auto) 0.2 % 04/04/23 23:07 Baso % (Auto) 0.5 % 04/04/23 23:07 Neut # (Auto) 6.95 10^3/uL (1.8 -7.7) 04/04/23 23:07 Lymph # (Auto) 2.4 10^3/uL (0.8- 4.8) 04/04/23 23:07 Hood # (Auto) 0.7 10^3/uL (0.2- 0.9) 04/04/23 23:07 Eos # (Auto) 0.0 10^3/uL (0.0- 0.8) 04/04/23 23:07 Baso # (Auto) 0.1 10^3/uL (0.0- 0.1) 04/04/23 23:07 Nucleated RBC % (a uto) 0 % 04/04/23 23:07 Nucleated RBCs # 0.0 /100WBC 04/04/23 23:07 PT 13.00 SECONDS (12 .1-14.9) 04/04/23 23:07 INR 0.96 (0.8-1.2) 04/04/23 23:07 Sodium 139 mmol/L (136-1 45) 04/04/23 23:07 Potassium 3.4 mmol/L (3.5-5 .1) L 04/04/23 23:07 Chloride 104 mmol/L (98-10 7) 04/04/23 23:07 Carbon Dioxide 27 mmol/L (22-29) 04/04/23 23:07 Anion Gap 11.4 (5-19) 04/04/23 23:07 BUN 13 mg/dL (6-20) 04/04/23 23:07 Creatinine 0.8 mg/dL (0.5-0. 9) 04/04/23 23:07 GFR Calculation 83.1 mL/min (90-1 30) L 04/04/23 23:07 Glucose 85 mg/dL (65-115) 04/04/23 23:07 Calculated Osmolal ity 287 mOsm/kg (285- 295) 04/04/23 23:07 Calcium 8.9 mg/dL (8.5-10 .5) 04/04/23 23:07 Total Bilirubin 0.7 mg/dL (0.15-1 .2) 04/04/23 23:07 AST 20 U/L (0-32) 04/04/23 23:07 ALT 7 U/L (0-33) 04/04/23 23:07 Alkaline Phosphata se 87 U/L (35-105) 04/04/23 23:07 Total Protein 7.2 g/dL (6.6-8.7 ) 04/04/23 23:07 Albumin 4.7 g/dL (3.5-5.2 ) 04/04/23 23:07 Globulin 2.5 g/dL (1.3-4.6 ) 04/04/23 23:07 TSH 2.28 uIU/mL (0.27 -4.20) 04/04/23 23:07 HCG, Qual Negative (Negati ve) 04/05/23 01:04 Ser , Kirstin i-Qnt 1.00 mIU/mL 04/10/23 13:50 Urine Color Yellow (Yellow) 04/10/23 13:45 Urine Appearance Sl hazy (CLEAR) A 04/10/23 13:45 Urine pH 8 (5-7) H 04/10/23 13:45 Ur Specific Gravit y 1.010 (1.005-1.0 30) 04/10/23 13:45 Urine Protein Neg (Negative) 04/10/23 13:45 Urine Glucose (UA) Norm (Normal) 04/10/23 13:45 Urine Ketones Negative (Negati ve) 04/10/23 13:45 Urine Blood Neg (Negative) 04/10/23 13:45 Urine Nitrate Negative (Negati ve) 04/10/23 13:45 Urine Bilirubin Neg (Negative) 04/10/23 13:45 Prot Sulfosalicyli c Acd Negative (Negati ve) 04/10/23 13:45 Urine Urobilinogen Neg mg/dL (Negati ve) 04/10/23 13:45 Ur Leukocyte Soledad ase Negative (Negati ve) 04/10/23 13:45 Urine RBC Rare /hpf (0-2) 04/10/23 13:45 Urine WBC Rare /hpf (0-5) 04/10/23 13:45 Ur Squamous Epith Cells 0-4 /hpf (0-5) H 04/10/23 13:45 Amorphous Sediment 1+ /hpf 04/10/23 13:45 Urine Bacteria 1+ /hpf (NONE) H 04/10/23 13:45 Urine Mucus Trace /hpf 04/10/23 13:45 Salicylates < 0.3 mg/dL (3-10 ) L 04/04/23 23:07 Urine Opiates Scre en Negative ng/mL (N egative) 04/05/23 01:04 Acetaminophen < 5.0 ug/mL (10-3 0) L 04/04/23 23:07 Ur Barbiturates Sc reen Negative ng/mL (N egative) 04/05/23 01:04 Ur Phencyclidine S crn Negative ng/mL (N egative) 04/05/23 01:04 Ur Amphetamines Sc reen Negative ng/mL (N egative) 04/05/23 01:04 U Benzodiazepines Scrn Negative ng/mL (N egative) 04/05/23 01:04 Urine Cocaine Scre en Negative ng/mL (N egative) 04/05/23 01:04 U Marijuana (THC) Screen Negative ng/mL (N egative) 04/05/23 01:04 Ethyl Alcohol < 10 mg/dL (0-10) 04/04/23 23:07 C.trachomatis RNA (TMA) Not detected (NO T DETECTED) 04/07/23 17:20 Chlamydia/GC Comme nt See note 04/07/23 17:20 Hepatitis A IgM Ab Non-reactive (No nreactive) 04/10/23 13:50 Hep Bs Antigen Non-reactive (No nreactive) 04/10/23 13:50 Hep Bs Antibody 10.4 (11.5-1000) L 04/10/23 13:50 Hep B Core Total A b Non-reactive (No nreactive) 04/10/23 13:50 Hepatitis C Antibo dy Non-reactive (No nreactive) 04/10/23 13:50 HSV I IgG Ab 2.34 index H 04/06/23 23:07 HSV II IgG 5.38 index H 04/06/23 23:07 HIV 1&2 Ab & HIV 1 Ag Non-reactive (No n-Reactiv) 04/10/23 13:50 HIV 1&2 Antibody Non-reactive (No n-Reactiv) 04/10/23 13:50 N.gonorrhoeae RNA (TMA) Not detected (NO T DETECTED) 04/07/23 17:20 Vitals: Last Vital Signs Temp 97.8 F 04/12/23 06:00 Pulse 101 H 04/12/23 06:00 Resp 16 04/12/23 06:00 BP 105/73 04/12/23 06:00 Pulse Ox 97 04/12/23 06:00 O2 Del Method Room Air 04/12/23 06:00 Discharge Plan Discharge Patient Disposition: Home Condition: Stable Prescriptions: New trazodone 50 mg Tablet 50 mg PO BEDTIME PRN (Reason: Sleep) 30 Days Qty: 30 1RF hydroxyzine pamoate 25 mg Capsule 50 mg PO TID 30 Days Qty: 120 1RF aripiprazole 10 mg Tablet 10 mg PO DAILY 30 Days Qty: 30 1RF No Action No Known Home Medications Discharge Orders: Discharge Order (Routine); Ordered 04/12/23 Ordered By: Low Corado Referrals: [facility] [Other] - 04/20/23 9:00 am (Initial assessment for services with Gela Da Silva. 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
[2023-04-12] MEDS: hyDROXYzine 25 mg Capsule 50 MG PO (08:13)
[2023-04-12] MEDS: ARIPiprazole 10 mg Tablet PO (08:13)
[2023-04-12] MEDS: nicotine 2 mg Gum BUCCAL (10:13)
[2023-04-12 10:49] VITALS: BP 105/73; PULSE 101; RESP 16; TEMP 36.6; O2SAT 97
== END 2023-04-12 11:25 | disposition home or self-care (01) | DRG 885 ==
LOC: ER 23:43 → NP 23:49
PROVIDERS: Internal Medicine; Admitting Provider Psychiatry & Neurology Psychiatry; Emergency Provider Emergency Medicine; Visit Provider Psychiatry & Neurology Psychiatry
DX: F23 Brief psychotic disorder (principal); F44.1 Dissociative fugue
CPT/HCPCS: 36415; 80053; 80306; 80307; 81001; 81025; 84443; 84702; 85025; 85610; 86695; 86696; 86705; 86706; 86709; 86803; 87340; 87491; 87591; 87806; 96372; 97150; 97165; 99285; J2060; Q0163